=== PATIENT | female | born 1985 | race Caucasian/White ===

== ENCOUNTER 2018-09-03 23:04 | Emergency (ER) | payer SELFPAY ==
[~2018-09-03] VITALS: Ht 170.2 cm; Wt 72.8 kg
[2018-09-03 23:14] VITALS: Ht 170.2 cm; Wt 72.8 kg
[2018-09-04] MEDS ORDERED: IBUP800T48 PO (00:48)
[2018-09-04] MEDS ORDERED: HYDR-3980 PO (00:48)
[2018-09-04] MEDS ORDERED: NALO4SPR NS (00:48)
--- NOTE | 2018-09-04 00:51 | ERD ---
ER Documentation Chief Complaint Chief Complaint PT having dental bilateral bottom pain HPI Is a 33-year-old female who presents with dental pain. About 2 years ago she went through [facility] and has been having dental problems since. Her doctor is currently out of the country so she is unable to get help from him. She is requesting a dental block. No fevers. ROS All systems reviewed and are negative except as per history of present illness. Medications Home Meds Active Scripts Hydrocodone/Acetaminophen ([place] 10-325 Tablet) 1 Each Tablet, 1 TAB PO Q6H PRN for PAIN, #20 TAB Prov:LINO ABRAMS PA-C 09/04/18 Naloxone HCl nasal spray (Narcan 4 mg/0.1 mL nasal) 4 Mg Mitchell, 4 MG NS .Q2-3MIN for OPIOID OVERDOSE, #2 SPRAY 0 Refills Mitchell 0.1 mL into one nostril. Repeat with second device into other nostril after 2-3 minutes if no or minimal response Prov:LINO ABRAMS PA-C 09/04/18 Ibuprofen* (Motrin*) 800 Mg Tab, 800 MG PO Q6, #30 TAB Prov:LINO ABRAMS PA-C 09/04/18 Allergies Allergies: Coded Allergies: No Known Allergy (Unverified , 09/03/18) PMhx/Soc Medical and Surgical Hx: pt denies Medical Hx History of Surgery: Yes (DENTAL SX) Anesthesia Reaction: No Hx Miscellaneous Medical Probl: Yes Hx Alcohol Use: No Hx Substance Use: No Hx Tobacco Use: No Smoking Status: Never smoker FmHx Family History: No diabetes Physical Exam Vitals Vital Signs Date Temp Pulse Resp B/P (MAP) Pulse Ox O2 O2 Flow FiO2 Time Delivery Rate 09/03/18 98.7 88 16 130/77 99 23:14 (94) Physical Exam Const: No acute distress Head: Atraumatic Eyes: Normal Conjunctiva ENT: Normal External Ears, Nose. Poor dentition with metal implant on the left side, no tonsillar erythema or edema, uvula midline, no kissing tonsils Neck: Full range of motion. No meningismus. Resp: Clear to auscultation bilaterally Cardio: Regular rate and rhythm, no murmurs Procedures/MDM 33-year-old female is here with dental pain. She is requesting a dental block which I explained to her we would not be able to do but I did give her a prescription for pain medication and she plans to follow-up with her dentist when he comes back from [place] within 1 week. Patient counseled regarding my diagnostic impression and care plan. Prior to discharge all questions answered. Pt agrees with treatment plan and understands strict return precautions. Pt is instructed to follow up with primary care provider within 24-48 hours. Precauti onary instructions provided including instructions to return to the ER if not improving or for any worsening or changing symptoms or concerns. Departure Diagnosis: Primary Impression: Pain, dental Condition: Stable Patient Instructions: Dental Pain Additional Instructions: Call your primary care doctor TOMORROW for an appointment during the next 1-2 days.See the doctor sooner or return here if your condition worsens before your appointment time. LINO ABRAMS PA-C September 04, 2018 00:51
[2018-09-04 01:24] VITALS: BP 128/77; PULSE 68; RESP 16
== END 2018-09-04 01:24 | disposition home or self-care (01) ==
LOC: FTE 23:04
DX: K08.89 Other specified disorders of teeth and supporting structures (principal)
CPT/HCPCS: 99283